=== PATIENT | female | born 1975 | race Caucasian/White ===

== ENCOUNTER → 2017-09-16 14:14 | Outpatient (CLI) | payer BC, SELFPAY ==
--- NOTE | 2017-09-16 14:17 | BI_ITS ---
MAMMOGRAPHY - BILATERAL SCREENING REASON FOR EXAM: Female, 42 years old. Routine annual screening examination. PERTINENT HISTORY: Non-contributory. TECHNIQUE: Digital bilateral breast ronald (3D mammographic acquisition) in the CC and MLO projections. 2-D mediolateral oblique (MLO) and craniocaudad (CC) views of both breasts were obtained. CAD: Full Field Digital Mammography with Computer Added Detection was performed. COMPARISON: Comparison is made with prior study dated August 13, 2016 and March 02, 2014. FINDINGS: Breast Composition: The breasts are extremely dense, which lowers the sensitivity of mammography. There are no dominant masses or suspicious calcifications. No other significant abnormalities are identified. There has been no significant change since the prior study. BI/SCREENING MAMM (CAD), BILAT IMPRESSION: Stable bilateral screening mammogram. Yearly follow-up mammogram recommended. (A) ASSESSMENT CATEGORY: BIRADS Category 1: Negative. A letter regarding these results will be sent to the patient by the facility within 30 days. Approximately 10% of breast cancers are not detected by mammography. A normal mammogram should not delay biopsy of a clinically suspicious abnormality. [id number] Electronically Signed: Shaka Ashraf MD at 8:07 EDT Tel [phone], Service support ,
== END ==
PROVIDERS: Family Provider Family Medicine; PCP Family Medicine; Visit Provider Obstetrics & Gynecology
DX: Z01.419 Encounter for gynecological examination (general) (routine) without abnormal findings (principal); Z12.31 Encounter for screening mammogram for malignant neoplasm of breast
CPT/HCPCS: 77063; 77067

== ENCOUNTER 2017-09-20 08:42 | Emergency (ER) | payer BC, SELFPAY ==
[2017-09-20 08:43] VITALS: BP 191/101; PULSE 76; RESP 18; TEMP 37; O2SAT 95; BMI 25.7
--- NOTE | 2017-09-20 08:58 | EKG12_ITS ---
Test Reason : CP Blood Pressure : / mmHG Vent. Rate : 080 BPM Atrial Rate : 080 BPM P-R Int : 150 ms QRS Dur : 086 ms QT Int : 406 ms P-R-T Axes : 041 044 056 degrees QTc Int : 468 ms Sinus rhythm with sinus arrhythmia with occasional Premature ventricular complexes Otherwise normal ECG No previous ECGs available Confirmed by PUNEET FELIX ([id number]), industrial editor RED DAILY ([id number]) on 09/30/2017 2:58:48 PM Referred By: Kathi Vega Confirmed By:PUNEET FELIX
--- NOTE | 2017-09-20 08:58 | RAD_ITS ---
STUDY: X-RAY CHEST REASON FOR EXAM: Female, 42 years old. Chest pain with numbness in the left upper extremity. TECHNIQUE: PA and lateral views of the chest. COMPARISON: None. FINDINGS: EKG electrodes are seen. The lungs are clear and expanded. There is no demonstrated pleural abnormality. Normal size heart. Normal mediastinum and chioma. Normal visualized pulmonary arteries. Normal visualized aortic arch and descending thoracic aorta. Normal visualized thoracic spine. Normal visualized ribs, clavicles, and shoulders. There is no demonstrated abnormality of the visualized soft tissue structures of the upper abdomen. RAD/Chest PA and Lateral IMPRESSION: Normal x-ray examination of the chest. Electronically Signed: Shaka Ashraf MD at 9:50 EDT Tel [phone], Service support ,
[2017-09-20 09:09] LABS: Absolute Lymphocyte Count 1.49 X10^3/ul (0.83-4.51); Absolute Neutrophil Count 2.5 X10^3/uL (2.0-7.7); Basophil# 0.01 X10^3/uL; Basophil% 0.2 % (0-1); Eosinophil# 0.07 X10^3/uL; Eosinophils% 1.6 % (0-5); Hematocrit 40.6 % (37-47); Hemoglobin 13.2 g/dl (12.0-15.0); Lymphocyte # 1.49 X10^3/ul (4.0); Lymphocyte % 33.1 % (19-41); Mean Corp Hgb Conc 32.5 g/gl (32-36); Mean Corpuscular Hgb 29.1 pg (27.0-32.0); Mean Corpuscular Volume 89.6 fL (81-99); Mean Platelet Vol. 10.7 fl (6.2-12.0); Monocyte# 0.38 X10^3/uL; Monocyte% 8.4 % (0-10); Neutrophil # 2.54 X10^3/uL (2.7-7.7); Neutrophil % 56.5 % (47-70); POSITIVE COUNT NO; POSITIVE DIFFERENTIAL NO; POSITIVE MORPHOLOGY NO; Platelet Count 187 K/mm3 (150-450); RBC Distribution Width SD 42.6 fl (35.1-43.9); Red Blood Count 4.53 M/mm3 (4.2-5.4); White Blood Count 4.5 K/mm3 (4.4-11.0)
[2017-09-20 09:18] LABS: Anion Gap 7 (5-15); BUN 19 mg/dL (7-18); BUN/Creat Ratio 23.5 RATIO (10-20); Calcium,Total 8.6 mg/dL (8.5-10.1); Chloride 105 mmol/L (98-107); Creatinine, Serum 0.81 mg/dL (0.55-1.02); EST Glomerular Filtration Rate 82 mL/min (>60); Est Glom Filt Rate - Afr Amer 99 mL/min (>60); Estimated Creatinine Clearance 99.06 ml/min; Glucose 98 mg/dL (74-106); Potassium 3.4 mmol/L (3.5-5.1); Sodium Level 139 mmol/L (136-145)
--- NOTE | 2017-09-20 10:10 | ED.VISSUMM ---
- ER Visit Summary Date of Service: 09/20/17 Chief Complaint: Left-sided chest pain with nausea and left upper extremity numbness History of Present Illness: The patient is a 42 F who has no significant past medical history and is a non-smoker who presents with intermittent left-sided chest pain described as sharp lasting up to 30 seconds. She has had 12 episodes. This was associated with numbness of the left upper extremity and nausea. She had no other symptoms. She presently is without pain. Her only risk factor is family both paternal and maternal side at young age. 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 Her initial blood pressure was documented 191/101 repeat was 201 over 105. She does report being anxious. She denies any leg pain, swelling discoloration. She has no history of PE or DVT nor does she have any risk factors. She denies any hematemesis, melena hematochezia. She localizes the pain to the lateral left pectoral region. There is no history of trauma. There is no exacerbating, precipitating or alleviating factors. states he did give her aspirin prior to presenting to the emergency department. She denies any food intolerance. There is no history of gallbladder problems. Please see written note for complete details. Physical Examination: initial blood pressure 191/101. Vital signs are otherwise unremarkable. She appears in no distress. HEENT exam is unremarkable. Heart is regular without murmur, gallop or rub. S1 and S2 are normal. Lungs are clear to auscultation with good movement of air bilaterally. Abdomen is soft nontender with no palpable pulsatile mass or abdominal bruit. No hepatomegaly and negative Domínguez sign. There is no asymmetry, swelling, discoloration, leg vein distention, palpable cords or tenderness along the distribution of the deep venous system. Neuro exam is nonfocal Test Results: The revealed a sinus rhythm rate of 80 with respiratory variation and 1 premature ventricular beat. Two-view chest x-ray reveals normal cardiac silhouette, cardiac size, mediastinum, lung parenchyma and musculoskeletal structures. CBC BMP are unremarkable. Troponin is less than 0.02. Emergency Department Course and Treatment: To evaluate patient's chest pain EKG, chest x-ray and blood work was obtained. Differential would include cardiac versus noncardiac E pulmonary and GI etiology. Heart score is 1. Treatment Plan: Since patient's symptoms last less than 30 seconds workup is negative and blood pressure has normalized i.e. systolic 115 will discharge to home with appropriate home-going instruction and follow-up with Dr. Catrachito Zamora. She was for Dr. Zamora because sees her and she has no primary care physician. Disposition: To home in stable condition Impression: 1. Left-sided chest pain unknown etiology 2. Transient hypertension This note was generated with [employer] dictation software. It may contain incorrect words, spelling, and punctuation that were not noted in review of the chart prior to signing ED Disposition - Plan for ED Patient: Disposition: Home or Assisted Living Chief Complaint: Chest Pain Instructions: ED Chest Pain NonCardiac Referrals: Care Physician,No Primary [Primary Care Provider] - Catrachito Zamora MD [STAFF PHYSICIAN] - 1-2 Weeks Additional Instructions: Recommend follow-up with Dr. Catrachito Zamora and have your blood pressure checked in 1-2 weeks.
[2017-09-20 10:11] VITALS: BP 170/92; PULSE 70; RESP 16; O2SAT 99
--- NOTE | 2017-09-20 10:16 | ED.DCSUM_ITS ---
- ER Visit Summary Date of Service: 09/20/17 Chief Complaint: Left-sided chest pain with nausea and left upper extremity numbness History of Present Illness: The patient is a 42 F who has no significant past medical history and is a non-smoker who presents with intermittent left-sided chest pain described as sharp lasting up to 30 seconds. She has had 12 episodes. This was associated with numbness of the left upper extremity and nausea. She had no other symptoms. She presently is without pain. Her only risk factor is family both paternal and maternal side at young age. 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 Her initial blood pressure was documented 191/101 repeat was 201 over 105. She does report being anxious. She denies any leg pain, swelling discoloration. She has no history of PE or DVT nor does she have any risk factors. She denies any hematemesis, melena hematochezia. She localizes the pain to the lateral left pectoral region. There is no history of trauma. There is no exacerbating, precipitating or alleviating factors. states he did give her aspirin prior to presenting to the emergency department. She denies any food intolerance. There is no history of gallbladder problems. Please see written note for complete details. Physical Examination: initial blood pressure 191/101. Vital signs are otherwise unremarkable. She appears in no distress. HEENT exam is unremarkable. Heart is regular without murmur, gallop or rub. S1 and S2 are normal. Lungs are clear to auscultation with good movement of air bilaterally. Abdomen is soft nontender with no palpable pulsatile mass or abdominal bruit. No hepatomegaly and negative Domínguez sign. There is no asymmetry, swelling, discoloration, leg vein distention, palpable cords or tenderness along the distribution of the deep venous system. Neuro exam is nonfocal Test Results: The revealed a sinus rhythm rate of 80 with respiratory variation and 1 premature ventricular beat. Two-view chest x-ray reveals normal cardiac silhouette, cardiac size, mediastinum, lung parenchyma and musculoskeletal structures. CBC BMP are unremarkable. Troponin is less than 0.02. Emergency Department Course and Treatment: To evaluate patient's chest pain EKG , chest x-ray and blood work was obtained. Differential would include cardiac versus noncardiac E pulmonary and GI etiology. Heart score is 1. Treatment Plan: Since patient's symptoms last less than 30 seconds workup is negative and blood pressure has normalized i.e. systolic 115 will discharge to home with appropriate home-going instruction and follow-up with Dr. Catrachito Zamora. She was for Dr. Zamora because sees her and she has no primary care physician. Disposition: To home in stable condition Impression: 1. Left-sided chest pain unknown etiology 2. Transient hypertension This note was generated with [employer] dictation software. It may contain incorrect words, spelling, and punctuation that were not noted in review of the chart prior to signing ED Disposition - Plan for ED Patient: Disposition: Home or Assisted Living Chief Complaint: Chest Pain Instructions: ED Chest Pain NonCardiac Referrals: Care Physician,No Primary [Primary Care Provider] - Catrachito Zamora MD [STAFF PHYSICIAN] - 1-2 Weeks Additional Instructions: Recommend follow-up with Dr. Catrachito Zamora and have your blood pressure checked in 1-2 weeks.
== END 2017-09-20 10:29 | disposition home or self-care (01) ==
PROVIDERS: Emergency Provider Emergency Medicine
DX: R07.9 Chest pain, unspecified (principal); I10 Essential (primary) hypertension; I49.3 Ventricular premature depolarization; R20.2 Paresthesia of skin
CPT/HCPCS: 71046; 80048; 84484; 85025; 93005; 99284

== ENCOUNTER → 2020-04-25 | Outpatient (CLI) | payer BC, SELFPAY ==
[2020-04-30 21:51] LABS: HPV APTIMA, High Risk Negative (Negative); HPV Reflexed? YES, CHARGE PATIENT
== END | disposition home or self-care (01) ==
LOC: LABSPEC 11:30
PROVIDERS: Visit Provider Student in an Organized Health Care Education/Training Program
DX: Z12.4 Encounter for screening for malignant neoplasm of cervix (principal)
CPT/HCPCS: 87624; 88175; G0145

== ENCOUNTER → 2020-05-30 10:03 | Outpatient (CLI) | payer BC, SELFPAY ==
--- NOTE | 2020-05-30 10:05 | BI_ITS ---
MAMMOGRAPHY - BILATERAL SCREENING REASON FOR EXAM: Female, 45 years old. Routine annual screening examination. PERTINENT HISTORY: Non-contributory. TECHNIQUE: Digital bilateral breast evie (3D mammographic acquisition) in the CC and MLO projections. 2-D mediolateral oblique (MLO) and craniocaudad (CC) views of both breasts were obtained. CAD: Full Field Digital Mammography with Computer Added Detection was performed. COMPARISON: Comparison is made with prior study dated 09/16/2017 and 08/13/2016. FINDINGS: Breast Composition: The breasts are extremely dense, which lowers the sensitivity of mammography. There is a 2.6 cm nodular density in the upper deep lateral portion of the right breast. Correlation with ultrasound is recommended. No other significant abnormalities are identified. BI/SCREEN MAMM (CAD) W/EVIE BILAT IMPRESSION: 2.6 times a nodular density in the upper deep lateral aspect of the right breast as described. Correlation with ultrasound is recommended. ASSESSMENT CATEGORY: BIRADS Category 0: Incomplete. Need additional imaging evaluation. A letter regarding these results will be sent to the patient by the facility within 30 days. Approximately 10% of breast cancers are not detected by mammography. A normal mammogram should not delay biopsy of a clinically suspicious abnormality. [id number] Electronically Signed: Shaka Ashraf, at 10:58 EST , Service support ,
== END ==
PROVIDERS: PCP Family Medicine; Referring Provider Student in an Organized Health Care Education/Training Program; Visit Provider Student in an Organized Health Care Education/Training Program
DX: Z12.31 Encounter for screening mammogram for malignant neoplasm of breast (principal)
CPT/HCPCS: 77063; 77067

== ENCOUNTER → 2020-06-03 09:22 | Outpatient (CLI) | payer BC, SELFPAY ==
--- NOTE | 2020-06-03 09:24 | US_ITS ---
STUDY: ULTRASOUND BREAST - RIGHT REASON FOR EXAM: Female, 45 years old. Abnormal screening mammogram. TECHNIQUE: Axial and longitudinal images of the RIGHT breast were performed with a high resolution ultrasound transducer. # OF IMAGES: 108 COMPARISON: Comparison is made with prior study dated 05/30/2020. FINDINGS: RIGHT Breast: The upper outer quadrant of the right breast was examined by ultrasound. There is evidence of dense fibroglandular tissue. No distinct mass lesion is seen. US/Breast Limited Unilateral IMPRESSION: The mammographic abnormality corresponds to dense fibroglandular tissue. Routine mammographic follow-up is recommended. ASSESSMENT CATEGORY: BIRADS Category 2: Benign. A letter regarding these results will be sent to the patient by the facility within 30 days. Electronically Signed: Shaka Ashraf, at 10:52 EST , Service support ,
== END ==
PROVIDERS: PCP Family Medicine; Referring Provider Student in an Organized Health Care Education/Training Program; Visit Provider Student in an Organized Health Care Education/Training Program
DX: R92.8 Other abnormal and inconclusive findings on diagnostic imaging of breast (principal)
CPT/HCPCS: 76642

== ENCOUNTER → 2022-02-11 | Outpatient (CLI) | payer BC, SELFPAY ==
[2022-02-11 11:47] LABS: Hematocrit 40.5 % (37-47); Hemoglobin 13.5 g/dL (12.0-15.0); Mean Corp Hgb Conc 33.3 g/dL (32-36); Mean Corpuscular Hgb 30.1 pg (27.0-32.0); Mean Corpuscular Volume 90.4 fL (81-99); Mean Platelet Vol. 10.7 fl (6.2-12.0); Platelet Count 226 K/mm3 (150-450); RBC Distribution Width CV 12.5 % (11.6-14.6); RBC Distribution Width SD 41.5 fl (35.1-43.9); Red Blood Count 4.48 M/mm3 (4.2-5.4); White Blood Count 4.9 K/mm3 (4.4-11.0)
[2022-02-11 11:56] LABS: Hemoglobin A1c 5.2 % (3.8-5.6)
[2022-02-11 12:04] LABS: Thyroid Stim Hormone (TSH) 1.16 uIU/mL (0.358-3.74)
[2022-02-19 16:26] LABS: HPV APTIMA, High Risk Negative (Negative)
== END | disposition home or self-care (01) ==
LOC: WOBLAB 11:21
PROVIDERS: PCP Family Medicine; Visit Provider Student in an Organized Health Care Education/Training Program
DX: Z01.419 Encounter for gynecological examination (general) (routine) without abnormal findings (principal); Z12.4 Encounter for screening for malignant neoplasm of cervix
CPT/HCPCS: 36415; 83036; 84443; 85027; 87624; 88175; G0145

== ENCOUNTER → 2022-02-26 | Outpatient (CLI) | payer BC, SELFPAY ==
--- NOTE | 2022-02-26 08:05 | BI_ITS ---
MAMMOGRAPHY - BILATERAL SCREENING REASON FOR EXAM: Female, 46 years old. Routine annual screening examination. PERTINENT HISTORY: Non-contributory. TECHNIQUE: Digital bilateral breast evie (3D mammographic acquisition) in the CC and MLO projections. 2-D mediolateral oblique (MLO) and craniocaudad (CC) views of both breasts were obtained. CAD: Full Field Digital Mammography with Computer Added Detection was performed. COMPARISON: Comparison is made with prior study of 05/30/2020 and 09/16/2017. FINDINGS: Breast Composition: The breasts are extremely dense, which lowers the sensitivity of mammography. Persistent 2.4 cm nodular density in the deep lateral aspect of the right breast as seen on the craniocaudad view. This is not well seen on the mediolateral oblique view. Prior sonogram demonstrated this to be dense fibroglandular tissue. Additional mammographic views will be obtained for further evaluation. No other significant abnormalities are identified. BI/SCRN MAMM (CAD)W/EVIE BILAT IMPRESSION: Persistent nodular density in the lateral deep portion of the right breast as seen on the craniocaudad view. The patient will be recalled for compression spot views. Recall Side: Right Breast ASSESSMENT CATEGORY: BIRADS Category 0: Incomplete. Need additional imaging evaluation. A letter regarding these results will be sent to the patient by the facility within 30 days. Approximately 10% of breast cancers are not detected by mammography. A normal mammogram should not delay biopsy of a clinically suspicious abnormality. [id number] Electronically Signed: Shaka Ashraf MD at 9:26 EDT ,
== END | disposition home or self-care (01) ==
LOC: OPBI 08:03
PROVIDERS: PCP Family Medicine; Referring Provider Student in an Organized Health Care Education/Training Program; Visit Provider Student in an Organized Health Care Education/Training Program
DX: Z12.31 Encounter for screening mammogram for malignant neoplasm of breast (principal)
CPT/HCPCS: 77063; 77067

== ENCOUNTER → 2022-03-05 | Outpatient (CLI) | payer BC, SELFPAY ==
--- NOTE | 2022-03-05 13:12 | BI_ITS ---
MAMMOGRAPHY - BILATERAL DIAGNOSTIC REASON FOR EXAM: Female, 46 years old. ABN MAMMS PERTINENT HISTORY: Non-contributory. TECHNIQUE: Digital examination. Mediolateral oblique (MLO) and craniocaudad (CC) views of both breasts were obtained. CAD: CAD was not performed on this study. COMPARISON: 02/26/2022 FINDINGS: Breast Composition: The breasts are extremely dense, which lowers the sensitivity of mammography. Focal compression views do not confirm a mass in the upper-outer quadrant right breast most consistent with normal breast parenchyma. No other significant abnormalities are identified. BI/DIAG MAMM W/CAD, BILAT IMPRESSION: Stable bilateral diagnostic mammogram. ASSESSMENT CATEGORY: BIRADS Category 1: Negative. A letter regarding these results will be sent to the patient by the facility within 30 days. FOLLOW UP RECOMMENDATION: Yearly follow up mammogram recommended. (A) Approximately 10% of breast cancers are not detected by mammography. A normal mammogram should not delay biopsy of a clinically suspicious abnormality. Electronically Signed: Kameron Amezcua MD at 13:49 EDT ,
== END | disposition home or self-care (01) ==
PROVIDERS: PCP Family Medicine; Visit Provider Student in an Organized Health Care Education/Training Program
DX: R92.8 Other abnormal and inconclusive findings on diagnostic imaging of breast (principal)
CPT/HCPCS: 77066

== ENCOUNTER → 2022-03-16 | Outpatient (CLI) | payer BC, SELFPAY ==
--- NOTE | 2022-03-16 11:15 | BRBX_PTH ---
PATIENT: PETAR CARO LOC: [facility] U#:[id number] AGE/SX: 47/F ROOM: RE03/16/[address]: Dr. Alok Rivera MD : 1975 BED: DIS: 03/16/2022 SPEC #: [id number] RECD: 03/16/22 11:42 STATUS: ALICIA ELISHA #: [id number] ESPINOZA: 03/16/22 11:[address]: Alok Rivera DEPT: SURGICAL PATHOLOGY RECD BY: Nga High ENTERED: 03/16/22 13:33 SP TYPE: BREAST BX OTHR DR: Dr. Catrachito Zamora MD Tissues: Left breast, NOS Procedures: Surgery Specimen Level IV HEADER OPERATION: Left breast stereotactic needle core biopsy PRE-OP DIAGNOSIS: Left breast upper inner quadrant microcalcifications TISSUE SUBMITTED: Left breast ISCHEMIC TIME: 1 minute FIXATION TIME: 8.5 hours MICROSCOPIC DIAGNOSIS Left breast, upper inner quadrant, stereotactic core biopsy: Fibrocystic change with associated polarizable crystalline material and banal microcalcifications. Focal intraductal hyperplasia without atypia. No evidence of malignancy. AM:reji 03/17/2022 COMMENT Case has been reviewed in consultation with Dr. Pina who concurs with the above diagnosis. IDC:SJ MICROSCOPIC DESCRIPTION Slides are reviewed. GROSS DESCRIPTION Received in fixative is one container labeled with the patient's name and designated left breast. The specimen consists of multiple elongated fragments of lentz-yellow fibroadipose tissue that in aggregate measure 4 x 3 x 0.3 cm. The entire specimen is submitted in two cassettes. / QUENTIN:reji 03/16/2022 TC:5 CPT: 87146
--- NOTE | 2022-03-16 11:42 | PRO.PCM_ITS ---
Procedure Report Date of Procedure: 03/16/22 Procedure name: Stereotactic biopsy of left breast Indication: Pleomorphic calcifications in the upper inner quadrant of left breast After obtaining written and verbal consent and reviewing the details of the procedure, patient was positioned on the mammography table. Foreclosure Clerk image was performed to identify the location of microcalcifications. Stereo images were obtained at plus and -15 degrees. With these images, the biopsy site was targeted just below the area to be sampled. Then the biopsy site was anesthetized with local anesthetic (total volume 7 mL) both at the skin and deeply along the ventral biopsy tract. A skin michael was made with an 11 blade to accommodate the 8 Burmese mammotome core needle. The needle was advanced into this opening and the needle was fired. Post-firing images confirmed that we were in the vicinity of the calcifications. We then obtained 6 biopsies along the 180 degrees superior to the needle insertion site. The cores were then x- rayed and we confirmed the presence of microcalcifications. Satisfied with this result, I placed a clip at the biopsy site and confirmed it presents with another x-ray. This concluded the biopsy and the patient was allowed to sit upright while manual pressure was applied externally. She tolerated the procedure well without. She was given post-- procedure care instructions and we will follow up once pathology has resulted. EBL: 2 mL Procedures Integumentary [id number]-193xx: [id number] Bx breast 1st lesion [facility]
== END | disposition home or self-care (01) ==
PROVIDERS: PCP Family Medicine; Visit Provider Surgery
DX: N60.12 Diffuse cystic mastopathy of left breast (principal)
CPT/HCPCS: 19081; 88305; J7050; A4648

== ENCOUNTER → 2023-02-17 | Outpatient (CLI) | payer BC, SELFPAY ==
[2023-02-22 17:07] LABS: HPV APTIMA, High Risk Negative (Negative)
== END | disposition home or self-care (01) ==
LOC: WOBLAB 10:35
PROVIDERS: PCP Family Medicine; Visit Provider Student in an Organized Health Care Education/Training Program
DX: Z01.419 Encounter for gynecological examination (general) (routine) without abnormal findings (principal)
CPT/HCPCS: 87624; 88175; G0145

== ENCOUNTER → 2023-03-02 | Outpatient (CLI) | payer BC, SELFPAY ==
--- NOTE | 2023-03-02 | EMB_PTH ---
PATIENT: PETAR CARO LOC: [facility] U#:[id number] AGE/SX: 47/F ROOM: RE03/02/[address]: Dr. Linda Bach, : 1975 BED: DIS: 03/02/2023 SPEC #: [id number] RECD: 03/02/23 14:12 STATUS: ALICIA ELISHA #: [id number] ESPINOZA: 03/02/23 00:[address]: Linda Bach DEPT: SURGICAL PATHOLOGY RECD BY: Izabella Fermin ENTERED: 03/03/23 08:58 SP TYPE: ENDOM BX/C TATO DR: Dr. Catrachito Zamora MD Tissues: Endometrium, NOS Procedures: Surgery Specimen Level IV HEADER OPERATION: Endometrial biopsy PRE-OP DIAGNOSIS: R87.619 TISSUE SUBMITTED: Endometrial biopsy MICROSCOPIC DIAGNOSIS Endometrial biopsy: Scant fragments of benign endometrial epithelium. Fragments of benign endocervical epithelium, blood and mucous. See comment. SJ:reji 03/04/2023 COMMENT The specimen predominantly consists of endocervical epithelium, blood and mucous. Clinical correlation and appropriate follow up are necessary. MICROSCOPIC DESCRIPTION Slides are reviewed. GROSS DESCRIPTION Received is one container labeled with the patient's name and not further designated. The specimen consists of multiple fragments of hemorrhagic soft tissue that in aggregate measure 2.0 x 1.0 x 0.1 cm. The specimen is totally submitted in one cassette. / QUENTIN:reji 03/03/2023 TC: Cannot code CPT: 65206
== END | disposition home or self-care (01) ==
LOC: LABSPEC 14:23
PROVIDERS: PCP Family Medicine; Referring Provider Student in an Organized Health Care Education/Training Program; Visit Provider Student in an Organized Health Care Education/Training Program
DX: R87.619 Unspecified abnormal cytological findings in specimens from cervix uteri (principal)
CPT/HCPCS: 88305

== ENCOUNTER 2023-03-30 11:29 | Day surgery (SDC) | payer BC, SELFPAY ==
--- NOTE | 2023-03-30 | COLBX_PTH ---
PATIENT: PETAR CARO LOC: [facility] U#:[id number] AGE/SX: 48/F ROOM: RE03/30/[address]: Dr. Ken De Leon DO : 1975 BED: DIS: 03/30/2023 SPEC #: [id number] RECD: 03/30/23 14:07 STATUS: ALICIA ELISHA #: [id number] ESPINOZA: 03/30/23 00:[address]: Ken De Leon DEPT: SURGICAL PATHOLOGY RECD BY: Nga High ENTERED: 03/30/23 14:07 SP TYPE: COLON BX OTHR DR: Dr. Catrachito Zamora MD Tissues: A - Transverse colon B - Sigmoid colon biopsy Procedures: Surgery Specimen Level IV HEADER OPERATION: Colonoscopy - open access, biopsy PRE-OP DIAGNOSIS: Screening TISSUE SUBMITTED: A - Transverse polyp biopsy, B - Sigmoid polyp biopsy MICROSCOPIC DIAGNOSIS A. Transverse colon polyp, biopsy: Hyperplastic polyp. B. Sigmoid colon polyp, biopsy: Hyperplastic polyp. QUENTIN:reji 03/31/2023 MICROSCOPIC DESCRIPTION Slides are reviewed. GROSS DESCRIPTION A - Received in fixative is one container labeled with the patient's name and designated transverse polyp biopsy. The specimen consists of one irregular fragment of light lentz soft tissue that measures 0.3 x 0.3 x 0.1 cm. The specimen is totally submitted in one cassette. B - Received in fixative is one container labeled with the patient's name and designated sigmoid polyp biopsy. The specimen consists of one irregular fragment of light lentz soft tissue that measures 0.3 x 0.3 x 0.1 cm. The specimen is totally submitted in one cassette. / QUENTIN:reji 03/30/2023 TC:1 CPT: 48260 x2
[2023-03-30 11:53] VITALS: BP 149/102; PULSE 91; RESP 16; TEMP 36.6; O2SAT 98; BMI 26.7
[2023-03-30] MEDS: Lactated Ringers 1,000 ML 15 ML IV (12:15)
[2023-03-30 12:17] LABS: Internal QC Validated? YES +Cl - CLEAR BKGD; Pregnancy, Urine Negative Negative; Record Kit Lot#,Urine Preg HCG0000667200
--- NOTE | 2023-03-30 12:21 | PCM.HP.STD ---
[facility] - General General Date of Admission: 03/30/23 Date of Service: 03/30/23 Chief Complaint: Screening colonoscopy [facility] Jaycob CARO, is a 48 F who presents today for screening colonoscopy. She has no significant past medical history. She does not have any abdominal pain. She not having nausea. She denies any chest pain shortness of breath. She has no change in bowel habits including no bleeding or diarrhea. Overall she is in very good health. [facility]MERLY [facility] Medical History Non-smoker Home Medications NK 09/20/17 [History Last Taken Unknown] Allergy/AdvReac Type Severity Reaction Status Date / Time No Known Allergies Allergy Verified 03/30/23 12:14 Family History Mother Diabetes Father Heart disease Surgical History (Updated 03/25/23 @ 09:39 by Susu Bledsoe) H/O: History of hysteroscopy Hx of appendectomy Social History Smoking Status: Never smoker ROS Review of Systems ROS Unobtainable: other Constitutional Constitutional: Denies fatigue, fever(s), poor appetite, weight gain or weight loss ENT HEENT: Denies mouth lesions Cardiovascular Cardiovascular: Denies abdominal bloating, abdominal edema or abdominal pain Respiratory/Chest Respiratory/Chest: Denies change in mental status, change in phlegm color, chest congestion or chest tightness Gastrointestinal Gastrointestinal: Denies belching, bloating, change in bowel habits, change in stool character, chewing difficulty, coffee ground emesis, constipation, cramping, diarrhea, dyspepsia, dysphagia, early satiety, excessive flatus, fecal incontinence, heartburn, hematemesis, hematochezia, hemorrhoids, loose stools, melena, nausea, odynophagia, rectal bleeding, tenesmus, vomiting or weight changes Genitourinary Genitourinary: Denies abdominal discomfort, burning urination or itching Musculoskeletal Musculoskeletal: Reports as per HPI; Denies muscle weakness or myalgias Integumentary Integumentary: Denies jaundice Neurologic Neurologic: Denies lack of coordination or weakness Psychiatric Psychiatric: Denies confusion, depression, memory loss, mood swings, paranoia or suicidal ideation Endocrine Endocrinology: Denies systems reviewed and no addt'l complaints, except as documented Hematologic/Lymphatic Hematologic/Lymphatic: Denies anemia, easy bleeding, easy bruising or lymphadenopathy Allergic/Immunologic Allergic/Immunologic: Denies systems reviewed and no addt'l complaints, except as documented Vital Signs Vital Signs Vital Signs: 03/30/23 11:53 03/30/23 11:53 Temperature 97.8 F Temperature Source Temporal Pulse Rate 91 Respiratory Rate 16 Respiratory Pattern Normal Blood Pressure 149/102 H Blood Pressure Mean 117 Blood Pressure Source Monitor Blood Pressure Position Semi-Fowlers Blood Pressure Location Right Arm Pulse Ox 98 Oxygen Delivery Method Room Air Weight Weight: 191 lb 9.307 oz Body Mass Index (BMI) 26.7 Physical Exam Const alert General Appearance: cooperative Orientation / Consciousness: oriented to person HEENT hearing grossly normal bilaterally Head and Scalp: normal to inspection Face and Sinus: face symmetric Nose: external nose normal Mouth: oral and palatal mucosa normal Eyes conjunctivae normal General Eye: normal appearance of both eyes Neck full ROM General: normal visual inspection Lymph Lymphatic: no lymphadenopathy noted Chest inspection of chest normal and palpation of chest normal Chest: symmetrical chest wall rise Resp normal respiratory effort Effort and Inspection: able to speak in complete sentences Cardio regular rate GI non-distended Percussion: normal to percussion Rectal Exam: deferred Neuro Speech: speech normal Gait (Neuro): normal gait Results Lab / Micro Data Labs: Laboratory Results - last 24 hr 03/30/23 11:55: Urine Test Negative Assessment & Plan Assessment/Plan (1) Encounter for screening for malignant neoplasm of colon: PLAN: She was explained alternatives, risk, benefits including not withstanding bleeding, infection, sepsis, perforation, need for emergent surgery . She will have an ASA of 2.
[2023-03-30 12:55] VITALS: BP 107/76; BP 149/102; PULSE 83; RESP 18; TEMP 37.1; O2SAT 99
--- NOTE | 2023-03-30 12:55 | OP.CCLET_ITS ---
03/30/2023 Catrachito Zamora MD [address] [id number] Re : Colonoscopy procedure for Neela Ray Dear Dr. Zamora This procedure was performed on Thursday, March 30, 2023. My impressions and recommendations are as follows: Impressions : - Two 1 to 2 mm polyps in the sigmoid colon and in the transverse colon, removed with a cold snare. Resected and retrieved. - Diverticulosis in the sigmoid colon. Recommendations : - Discharge patient to home. - Resume previous diet. - Continue present medications. - Await pathology results. - Repeat colonoscopy in 5 years for surveillance. My findings are described in the full procedure note, which is enclosed. If I can be of further assistance, please feel free to contact me at . Sincerely, Ken Friend, 03/30/2023 12:55:19 PM This report has been signed electronically.
--- NOTE | 2023-03-30 12:55 | OP.COLON_ITS ---
Patient Name: Neela Ray Procedure Date: 03/30/2023 12:27 PM Date of : 1975 Age: 48 Procedure: Colonoscopy Indications: Screening for colorectal malignant neoplasm Providers: Ken De Leon DO Medicines: Monitored Anesthesia Care Patient Profile: This is a 48 year old female. Refer to note in patient chart for documentation of history and physical. Last Colonoscopy: none. The patient's first colonoscopy is today. Complications: No immediate complications. Procedure: Pre-Anesthesia Assessment: - Prior to the procedure, a History and Physical was performed, and patient medications and allergies were reviewed. The risks and benefits of the procedure and the sedation options and risks were discussed with the patient. All questions were answered and informed consent was obtained. Patient identification and proposed procedure were verified by the physician in the pre-procedure area. Mental Status Examination: alert and oriented. Airway Examination: normal oropharyngeal airway and neck mobility. Respiratory Examination: clear to auscultation. CV Examination: normal. Prophylactic Antibiotics: The patient does not require prophylactic antibiotics. Prior Anticoagulants: The patient has taken no anticoagulant or antiplatelet agents. ASA Grade Assessment: II - A patient with mild systemic disease. After reviewing the risks and benefits, the patient was deemed in satisfactory condition to undergo the procedure. The anesthesia plan was to use monitored anesthesia care (MAC). Immediately prior to administration of medications, the patient was re-assessed for adequacy to receive sedatives. The heart rate, respiratory rate, oxygen saturations, blood pressure, adequacy of pulmonary ventilation, and response to care were monitored throughout the procedure. The physical status of the patient was re-assessed after the procedure. After I obtained informed consent, the scope was passed under direct vision. Throughout the procedure, the patient's blood pressure, pulse, and oxygen saturations were monitored continuously. The was introduced through the anus and advanced to the cecum, identified by appendiceal orifice and ileocecal valve. The colonoscopy was performed without difficulty. The patient tolerated the procedure well. The quality of the bowel preparation was adequate. The ileocecal valve, appendiceal orifice, and rectum were photographed. Scope In: 12:33:51 PM Scope Withdrawal Time 0 hours 6 minutes 44 seconds Scope Out: 12:47:44 PM Total Procedure Duration Time 0 hours 13 minutes 53 seconds Findings: The perianal and digital rectal examinations were normal. Two sessile polyps were found in the sigmoid colon and transverse colon. The polyps were 1 to 2 mm in size. These polyps were removed with a cold snare. Resection and retrieval were complete. Verification of patient identification for the specimen was done. Estimated blood loss was minimal. A few small-mouthed diverticula were found in the sigmoid colon. Impression: - Two 1 to 2 mm polyps in the sigmoid colon and in the transverse colon, removed with a cold snare. Resected and retrieved. - Diverticulosis in the sigmoid colon. Recommendation: - Discharge patient to home. - Resume previous diet. - Continue present medications. - Await pathology results. - Repeat colonoscopy in 5 years for surveillance. Procedure Code(s): --- Professional --- 00317, Colonoscopy, flexible; with removal of tumor(s), polyp(s), or other lesion(s) by snare technique CPT copyright 2021 [employer]. All rights reserved. The codes documented in this report are preliminary and upon president sales and marketing review may be revised to meet current compliance requirements. Ken De Leon DO 03/30/2023 12:55:19 PM This report has been signed electronically. Number of Addenda: 0 Note Initiated On: 03/30/2023 12:27 PM
[2023-03-30 13:00] VITALS: BP 149/102; BP 99/85; PULSE 74; RESP 18; O2SAT 100
[2023-03-30 13:05] VITALS: BP 143/82; BP 149/102; PULSE 72; RESP 18; O2SAT 100
[2023-03-30 13:10] VITALS: BP 138/90; BP 149/102; PULSE 66; RESP 18; TEMP 36.3; O2SAT 100
[2023-03-30 13:26] VITALS: BP 149/102
== END 2023-03-30 13:34 | disposition home or self-care (01) ==
LOC: EN 11:30 → AC 11:32
PROVIDERS: Anesthesiology; PCP Family Medicine; Referring Provider Family Medicine; Visit Provider Internal Medicine Gastroenterology
PROC: 0DJD8ZZ Inspection of Lower Intestinal Tract, Via Natural or Artificial Opening Endoscopic (ICD-10-PCS; CPT 45378; principal; 2023-03-30 12:25)
DX: Z12.11 Encounter for screening for malignant neoplasm of colon (principal); K57.30 Diverticulosis of large intestine without perforation or abscess without bleeding; K63.5 Polyp of colon; Z90.49 Acquired absence of other specified parts of digestive tract
CPT/HCPCS: 45385; 81025; 88305; J7120; J2405

== ENCOUNTER → 2024-03-23 | Outpatient (CLI) | payer OTHER, SELFPAY ==
--- NOTE | 2024-03-23 12:29 | BI_ITS ---
MAMMOGRAPHY - BILATERAL SCREENING REASON FOR EXAM: Female, 49 years old. Routine annual screening examination. PERTINENT HISTORY: Non-contributory. Prior left stereotactic breast biopsy. TECHNIQUE: Digital bilateral breast evie (3D mammographic acquisition) in the CC and MLO projections. 2-D mediolateral oblique (MLO) and craniocaudad (CC) views of both breasts were obtained. CAD: Full Field Digital Mammography with Computer Added Detection was performed. COMPARISON: Comparison is made with prior study dated March 05, 2022 and February 26, 2022. FINDINGS: Breast Composition: The breasts are extremely dense, which lowers the sensitivity of mammography. There are no dominant masses or suspicious calcifications. Stable bilateral fat containing axillary lymph nodes. No other significant abnormalities are identified. There has been no significant change since the prior study. BI/SCRN MAMM (CAD)W/EVIE BILAT IMPRESSION: Stable bilateral screening mammogram. Yearly follow-up mammogram recommended. (A) ASSESSMENT CATEGORY: BIRADS Category 2: Benign. A letter regarding these results will be sent to the patient by the facility within 30 days. Approximately 10% of breast cancers are not detected by mammography. A normal mammogram should not delay biopsy of a clinically suspicious abnormality. [id number] Electronically Signed: Shaka Ashraf MD at 13:29 EDT ,
== END | disposition home or self-care (01) ==
PROVIDERS: Referring Provider Nurse Practitioner Family; Visit Provider Nurse Practitioner Family
DX: Z12.31 Encounter for screening mammogram for malignant neoplasm of breast (principal)
CPT/HCPCS: 77063; 77067